=== PATIENT | male | born 1975 | race Caucasian/White ===

== ENCOUNTER → 2020-12-19 | Outpatient (CLI) | payer OTHER | LOC: LAB 09:00 | PROVIDERS: ATTEND Internal Medicine Gastroenterology | DX: Z01.812 Encounter for preprocedural laboratory examination (principal); Z13.810 Encounter for screening for upper gastrointestinal disorder; Z20.822 Contact with and (suspected) exposure to COVID-19 | CPT/HCPCS: U0003 ==

== ENCOUNTER → 2020-12-21 | Day surgery (SDC) | payer OTHER ==
[~2020-12-21] MED LIST: IV RINGERS,LACTATED 1000ML 1,000 ML IV ONE; PROPOFOL 10 MG/ML (20ML) VIAL. IV ONE
[2020-12-21 08:53] VITALS: BP 111/65
--- NOTE | 2020-12-21 09:11 | HP ---
ADMIT DATE: 12/21/2020 UPDATED HISTORY AND PHYSICAL REFERRING PHYSICIAN: PRATIBHA Lewis REASON FOR CONSULTATION: Colorectal screening with positive family history of colon cancer. HISTORY OF PRESENT ILLNESS: A 45-year-old male whose past medical history is significant for obesity, osteoarthritis, is seen for screening colon exam. Bowel habits are regular without diarrhea or constipation. Weight and appetite are stable. There has been no melena and/or hematochezia. He is otherwise without additional complaints. PAST MEDICAL HISTORY: Obesity, osteoarthritis. ALLERGIES: None. MEDICATIONS: Losartan. FAMILY HISTORY: Significant for colon cancer with his grandfather, diabetes with grandmother, hypertension with father. SOCIAL HISTORY: He is a nonsmoker, social drinker. PAST SURGICAL HISTORY: Significant for knee arthroscopy. Additional medical problems include hypertension, sleep apnea. REVIEW OF SYSTEMS: Per records. PHYSICAL EXAMINATION: GENERAL: Reveals a well-nourished, well-developed male. VITAL SIGNS: Temperature is 98, pulse 75, respiratory rate is 20, and pulse ox 95%. LUNGS: Clear. CARDIOVASCULAR: Reveals an S1, S2 without S3, S4 or appreciable murmur. ABDOMEN: Reveals a soft abdomen, normal bowel sounds, without appreciable hepatosplenomegaly. IMPRESSION: Colorectal screening with family history of colon cancer is warranted at this time. Risks and benefits of procedure including risk of hemorrhage and perforation have been previously discussed and he is willing to proceed. MEREDITH FERNÁNDEZ MD DR: CESIA/bertin JOB#: [id number] / [id number]
== END | disposition home or self-care (01) ==
LOC: ENDOS 07:37 → EDUNIT# 09:00
PROVIDERS: ATTEND Internal Medicine Gastroenterology
DX: Z12.11 Encounter for screening for malignant neoplasm of colon (principal); K64.0 First degree hemorrhoids; M19.90 Unspecified osteoarthritis, unspecified site; J45.909 Unspecified asthma, uncomplicated; E66.9 Obesity, unspecified; I10 Essential (primary) hypertension; Z80.0 Family history of malignant neoplasm of digestive organs; Z82.49 Family history of ischemic heart disease and other diseases of the circulatory system; Z79.899 Other long term (current) drug therapy; Z98.890 Other specified postprocedural states
CPT/HCPCS: 45378; J2704